=== PATIENT | female | born 1985 | race Caucasian/White ===

== ENCOUNTER → 2020-08-15 | Outpatient (CLI) | payer OTHER ==
[~2020-08-15] MED LIST: BACITRACIN28.4 GM TP; CEPHALEXIN500 M1 PO; FLEXERIL 10 MG10 MG PO; MEDROL4 MG PO; NORCO 5-325 TA1 EACH PO
== END ==
LOC: KOH-I 15:00
DX: R10.9 Unspecified abdominal pain (principal)
CPT/HCPCS: 74176

== ENCOUNTER 2020-11-22 13:09 | Emergency (ER) | payer OTHER ==
[~2020-11-22 13:09] MED LIST changes: -BACITRACIN28.4 GM TP; -CEPHALEXIN500 M1 PO; -MEDROL4 MG PO
== END 2020-11-22 13:42 | disposition left against medical advice (07) ==
LOC: ER1 13:09
DX: Z53.21 Procedure and treatment not carried out due to patient leaving prior to being seen by health care provider (principal)

== ENCOUNTER 2021-01-26 12:09 | Emergency (ER) | payer OTHER ==
[2021-01-26] MEDS ORDERED: CEPHALEXIN500 M1 PO (12:45)
[2021-01-26] MEDS ORDERED: BACITRACIN28.4 GM TP (12:45)
[2021-01-26] MEDS ORDERED: MEDROL4 MG PO (12:45)
== END 2021-01-26 14:05 | disposition home or self-care (01) ==
LOC: ER1 12:09
DX: S90.861A Insect bite (nonvenomous), right foot, initial encounter (principal); S90.862A Insect bite (nonvenomous), left foot, initial encounter; L03.116 Cellulitis of left lower limb; L03.115 Cellulitis of right lower limb; Z88.5 Allergy status to narcotic agent; F17.210 Nicotine dependence, cigarettes, uncomplicated; W57.XXXA Bitten or stung by nonvenomous insect and other nonvenomous arthropods, initial encounter
CPT/HCPCS: 96372; 99281; J1100

== ENCOUNTER 2021-09-04 19:25 | Emergency (ER) | payer OTHER ==
[~2021-09-04 19:25] MED LIST changes: +BACITRACIN28.4 GM TP; +CEPHALEXIN500 M1 PO; +MEDROL4 MG PO
[2021-09-04] MEDS ORDERED: PENVEE K 500 M500 MG PO (20:13)
[2021-09-04] MEDS ORDERED: PENICILLIN V P500 MG PO (20:13)
== END 2021-09-04 20:19 | disposition home or self-care (01) ==
LOC: ER1 19:25
DX: K02.9 Dental caries, unspecified (principal); Z88.5 Allergy status to narcotic agent
CPT/HCPCS: 99282